=== PATIENT | male | born 1985 | race African-American/Black ===

== ENCOUNTER 2023-02-10 12:25 | Emergency (ER) | payer MEDICAID ==
[~2023-02-10] VITALS: Ht 172.7 cm; Wt 77.3 kg
[~2023-02-10 12:25] MED LIST: NOCURR
[2023-02-10 12:26] VITALS: TEMP 98.5
[2023-02-10] MEDS ORDERED: CORTSUSP AD (12:58)
[2023-02-10 13:10] VITALS: BP 124/67; PULSE 66; RESP 18
== END 2023-02-10 13:07 | disposition home or self-care (01) ==
LOC: EMS 12:25
DX: H60.91 Unspecified otitis externa, right ear (principal); F17.210 Nicotine dependence, cigarettes, uncomplicated; Z98.890 Other specified postprocedural states
CPT/HCPCS: 99283; Z7502